=== PATIENT | female | born 1955 ===

== ENCOUNTER 2018-05-12 20:06 | Emergency (ER) | payer OTHER, BC ==
[2018-05-12 20:06] VITALS: BMI 32.2
[2018-05-12] MEDS ORDERED: Albuterol 0.083% Inhal Sol (2.5 mg/3 mL) UD INH STA (20:29)
[2018-05-12] MEDS ORDERED: Albuterol-Ipratrop 3 mg / 0.5 (3 ml) UD IH STA (20:29)
[2018-05-12] MEDS ORDERED: Albuterol 0.083% Inhal Sol (2.5 mg/3 mL) UD ONE (20:41)
[2018-05-12] MEDS ORDERED: Albuterol-Ipratrop 3 mg / 0.5 (3 ml) UD ONE (20:41)
--- NOTE | 2018-05-12 21:26 | C.PDOC ---
History Of Present Illness 62 y/o male presents to the ED complaining of SOB and asthma exacerbation. Patient reports dry cough with increasing wheezing and SOB over the last week. States she has been using her pump and nebulizers at home with minimal improvement. On arrival patient is speaking in full sentences. She denies any fever, nausea, vomiting, diarrhea, dizziness, headaches, or chest pain. Time Seen by Provider: 05/12/18 20:25 Chief Complaint (Nursing): Shortness Of Breath History Per: Patient History/Exam Limitations: no limitations Onset/Duration Of Symptoms: Days Current Symptoms Are (Timing): Still Present Exacerbating Factor(s): Coughing Current Respiratory Medications: See Home Med List Past Medical History Reviewed: Historical Data, Nursing Documentation, Vital Signs Vital Signs: Last Vital Signs Temp 98.3 F 05/12/18 20:10 Pulse 113 H 05/12/18 20:10 Resp 16 05/12/18 20:40 BP 163/83 H 05/12/18 20:10 Pulse Ox 99 05/12/18 20:10 - Medical History PMH: Asthma, HTN Denies: Chronic Kidney Disease Other Surgeries: Breast reduction Family History: States: No Known Family Hx - Social History Hx Tobacco Use: No Hx Alcohol Use: No Hx Substance Use: No - Immunization History Hx Tetanus Toxoid Vaccination: No Hx Influenza Vaccination: No Hx Pneumococcal Vaccination: No Review Of Systems Except As Marked, All Systems Reviewed And Found Negative. Constitutional: Negative for: Fever, Chills Eyes: Negative for: Vision Change Cardiovascular: Negative for: Chest Pain, Palpitations Respiratory: Positive for: Cough, Shortness of Breath, Wheezing Gastrointestinal: Negative for: Nausea, Vomiting, Diarrhea Musculoskeletal: Negative for: Back Pain Skin: Negative for: Rash Neurological: Negative for: Weakness, Numbness, Headache, Dizziness Physical Exam - Physical Exam Appears: Non-toxic, No Acute Distress Skin: Warm, Dry, No Rash Head: Atraumatic, Normacephalic Eye(s): bilateral: Normal Inspection, PERRL, EOMI Oral Mucosa: Moist Neck: Normal ROM Chest: Symmetrical Cardiovascular: Rhythm Regular, No Murmur Respiratory: No Accessory Muscle Use, No Rhonchi, Wheezing (Expiratory wheezing, right > left), Other (No respiratory distress) Gastrointestinal/Abdominal: Soft, No Tenderness, No Distention Extremity: Normal ROM, No Calf Tenderness, No Swelling Pulses: Left Dorsalis Pedis: Normal, Right Dorsalis Pedis: Normal Neurological/Psych: Oriented x3, Normal Speech Gait: Steady ED Course And Treatment O2 Sat by Pulse Oximetry: 99 (RA) Pulse Ox Interpretation: Normal - Radiology CXR: Interpreted by Me CXR Interpretation: Yes: No Acute Disease. No: Infiltrates, Pnemothorax Progress Note: Patient given nebulizers x2. Chest x-ray obtained, shows no acute disease. On reassessment patient is comfortable and reports improvement. Lung sounds improved. Will give patient oral steroid and discharge home. Disposition - Disposition Referrals: Dedrick Verma MD [Staff Provider] - Disposition: HOME/ ROUTINE Disposition Time: 21:55 Condition: STABLE Additional Instructions: Follow up with PMD within 1-2 days. Return to ED if feel worse. Prescriptions: predniSONE [predniSONE Tab] 2 tab PO DAILY #8 tab Azithromycin [Zithromax] 250 mg PO DAILY #4 tab Instructions: Asthma, Adult (DC) Forms: [employer]find[employer] (Georgian) - Clinical Impression Clinical Impression: Asthma exacerbation - PA / [employer] WORK[employer] / Resident Statement MD/DO has reviewed & agrees with the documentation as recorded. - Scribe Statement The provider has reviewed the documentation as recorded by the Mirza Varela All medical record entries made by the Charoibjf were at my direction and personally dictated by me. I have reviewed the chart and agree that the record accurately reflects my personal performance of the history, physical exam, medical decision making, and the department course for this patient. I have also personally directed, reviewed, and agree with the discharge instructions and disposition.
[2018-05-12 22:31] VITALS: BP 127/74; PULSE 102; RESP 20; TEMP 98.9; O2SAT 98
--- NOTE | 2018-05-13 07:10 | RAD ---
Date of service: 05/12/2018 HISTORY: cough/wheezing COMPARISON: 06/19/2012 TECHNIQUE: Chest PA and lateral FINDINGS: LUNGS: No consolidation. PLEURA: No significant pleural effusion identified. No pneumothorax apparent. CARDIOVASCULAR: No aortic atherosclerotic calcification present. Normal cardiac size. No pulmonary vascular congestion. OSSEOUS STRUCTURES: No significant abnormalities. VISUALIZED UPPER ABDOMEN: Normal. OTHER FINDINGS: None. IMPRESSION: No active disease.-no pulmonary infiltrate appreciated. No interval pathology noted.
== END 2018-05-12 22:32 | disposition home or self-care (01) ==
LOC: C.ER 20:06
DX: J45.901 Unspecified asthma with (acute) exacerbation (principal)

== ENCOUNTER → 2018-06-15 | Outpatient (CLI) | payer OTHER, BC | END | disposition home or self-care (01) | LOC: C.MRIC 16:48 | DX: M23.332 Other meniscus derangements, other medial meniscus, left knee (principal) ==